=== PATIENT | male | born 1940 | race Hispanic/Latino ===

== ENCOUNTER → 2017-10-22 | Outpatient (CLI) | payer OTHER | END | disposition home or self-care (01) | LOC: SHCH 09:12 | PROVIDERS: ATTEND Internal Medicine Cardiovascular Disease | DX: I67.9 Cerebrovascular disease, unspecified (principal) | CPT/HCPCS: 93880 ==

== ENCOUNTER → 2018-05-16 | Outpatient (CLI) | payer OTHER | END | disposition home or self-care (01) | LOC: SHCH 07:54 | PROVIDERS: ATTEND Internal Medicine Cardiovascular Disease | DX: I35.8 Other nonrheumatic aortic valve disorders (principal) | CPT/HCPCS: 93306 ==

== ENCOUNTER → 2020-03-04 | Outpatient (CLI) | payer OTHER | END | disposition home or self-care (01) | LOC: SHCH 09:16 | PROVIDERS: ATTEND Internal Medicine Cardiovascular Disease | DX: I25.10 Atherosclerotic heart disease of native coronary artery without angina pectoris (principal) | CPT/HCPCS: 93880 ==

== ENCOUNTER → 2020-10-20 | Outpatient (CLI) | payer OTHER | END | disposition home or self-care (01) | LOC: SHCH 07:55 | PROVIDERS: ATTEND Internal Medicine Cardiovascular Disease | DX: I08.0 Rheumatic disorders of both mitral and aortic valves (principal); R01.1 Cardiac murmur, unspecified | CPT/HCPCS: 93306; 93356 ==

== ENCOUNTER → 2020-10-22 | Outpatient (CLI) | payer OTHER ==
[~2020-10-22] VITALS: Ht 167.6 cm; Wt 69.4 kg
[~2020-10-22] MED LIST: REGADENOSON 0.4 MG/5 ML PF SYG IVP SCH
== END | disposition home or self-care (01) ==
LOC: SHCH 08:20
PROVIDERS: ATTEND Internal Medicine Cardiovascular Disease
DX: R07.9 Chest pain, unspecified (principal)
CPT/HCPCS: 78452; 93017; 96374; A9500 ×2; J2785

== ENCOUNTER → 2021-05-27 | Outpatient (CLI) | payer OTHER | END | disposition home or self-care (01) | LOC: RAH 10:14 | PROVIDERS: ATTEND Orthopaedic Surgery | DX: M19.011 Primary osteoarthritis, right shoulder (principal); M75.121 Complete rotator cuff tear or rupture of right shoulder, not specified as traumatic | CPT/HCPCS: 73221 ==

== ENCOUNTER 2021-08-10 06:16 | Observation (INO) | payer OTHER ==
[2021-08-08 10:30] VITALS: BP 175/95
[2021-08-08 11:15] LABS: APPEARANCE,URINE Clear (CLEAR); BILIRUBIN,URINE Negative (NEGATIVE); COLOR,URINE Yellow (YELLOW); GLUCOSE, URINE (UA) Negative (NEGATIVE); KETONES,URINE Negative (NEGATIVE); LEUKOCYTE ESTERASE ,URINE Negative (NEGATIVE); NITRATE,URINE Negative (NEGATIVE); OCCULT BLOOD,URINE Negative (NEGATIVE); PROTEIN,URINE Trace mg/dL (NEGATIVE); UROBILINOGEN,URINE 0.2 mg/dL (0.2-1.0)
[2021-08-08 11:29] LABS: BACTERIA,URINE None Seen /HPF (None Seen); RBC,URINE None Seen /HPF (0-1); SQUAMOUS EPITHELIAL CELL,UR 0-2 /HPF (0-2); WBC,URINE None Seen /HPF (0-1)
[2021-08-10] VITALS (26 sets, daily range): BP systolic 104–164; BP diastolic 61–100
[~2021-08-10] VITALS: Ht 167.6 cm; Wt 65.3 kg
[~2021-08-10 06:16] MED LIST changes: +AMLO-257 PO; +ATOR20TA65 PO; +CLOP75TA14 PO; +COMB5OS OU; +HYDR12.54 PO; +LATA7.5D OP; +NETA2.5D OP; -REGADENOSON 0.4 MG/5 ML PF SYG IVP SCH; +TRAM50TA4 PO; +VALS160T29 PO
[2021-08-10] MEDS ORDERED: LACTATED RINGERS 1000ML 1,000 ML IV ONE (07:59)
[2021-08-10] MEDS: CEFAZOLIN SODIUM 1 GM VIAL IVP ONE ×2 (08:46→11:46)
[2021-08-10] MEDS ORDERED: DEXAMETHASONE SOD PHOSPHATE 10MG/ML 1ML VIAL ONE (09:43)
[2021-08-10] MEDS ORDERED: CEFAZOLIN SODIUM 1 GM VIAL ONE (10:05)
[2021-08-10] MEDS ORDERED: ROCURONIUM 10MG/1ML SYR 10 MG/ML ML ONE (10:42)
[2021-08-10] MEDS ORDERED: ONDANSETRON 4MG INJ ONE (10:42)
[2021-08-10] MEDS ORDERED: LIDOCAINE PF 100MG/5ML (2%) SYRINGE 5ML ONE (10:42)
[2021-08-10] MEDS ORDERED: MIDAZOLAM HCL 1 MG/ML 2ML VIAL ONE (10:42)
[2021-08-10] MEDS ORDERED: PROPOFOL 10 MG/ML 20ML VIAL IV ONE (10:42)
[2021-08-10] MEDS ORDERED: FENTANYL CITRATE PF 50 MCG/1 ML 2ML VIAL ONE (10:43)
[2021-08-10] MEDS ORDERED: EPHEDRINE SULFATE 50 MG/ML AMPULE ONE (11:05)
[2021-08-10] MEDS ORDERED: GLYCOPYRROLATE 1 MG/5 ML SYRINGE ONE (11:23)
[2021-08-10] MEDS ORDERED: NEOSTIGMINE 5MG/5ML SYR IV ONE (11:23)
[2021-08-10] MEDS ORDERED: LIDOCAINE HCL-MPF 1% 2ML VIAL IV PRN (14:00)
[2021-08-10] MEDS ORDERED: CALCIUM CARB 500MG PO PRN (14:00)
[2021-08-10] MEDS ORDERED: POTASSIUM CHLORIDE 10% ELIXIR 20 MEQ/15 ML UDCUP PO PRN (14:00)
[2021-08-10] MEDS: ACETAMINOPHEN 500 MG TABLET PO SCH ×2 (14:00→21:57)
[2021-08-10] MEDS ORDERED: DiphenhydrAMINE HCL 50 MG/ML VIAL IVP PRN (14:00)
[2021-08-10] MEDS ORDERED: ONDANSETRON 4MG INJ IVP PRN (14:00)
[2021-08-10] MEDS ORDERED: KETOROLAC 15MG/ML VIAL (15MG/ML) IV PRN (14:00)
[2021-08-10] MEDS: 0.9%NACL 1000ML 1,000 ML IV SCH (14:00)
[2021-08-10] MEDS ORDERED: KCL 20 MEQ ERTAB PO PRN (14:00)
[2021-08-10] MEDS ORDERED: OXYCODONE HCL 5 MG TAB PO PRN ×2 (14:00)
[2021-08-10] MEDS ORDERED: POTASSIUM CHLORIDE 20MEQ/100ML 100 ML IV PRN (14:00)
[2021-08-10] MEDS ORDERED: TRAMADOL HCL 50 MG TABLET PO PRN (14:00)
[2021-08-10] MEDS ORDERED: TEMAZEPAM 15 MG CAPSULE PO PRN (14:00)
[2021-08-10] MEDS ORDERED: FE FUMARATE/FA/MV, MIN COMB#15 1 TAB PO PRN (14:00)
[2021-08-10] MEDS: CEFAZOLIN SODIUM 1 GM VIAL IVP SCH (18:24)
[2021-08-10] MEDS: NETARSUDIL MESYLATE OP SCH (21:00)
[2021-08-10] MEDS: LATANOPROST 2.5 ML DROPS OP SCH (21:49)
[2021-08-10] MEDS: TIMOLOL MALEATE 0.5% 5 ML BOTTLE OU SCH (21:49)
[2021-08-10] MEDS: BRIMONIDINE TARTRATE 0.2% 5 ML BOTTLE OU SCH (21:49)
[2021-08-10] MEDS: ATORVASTATIN 20 MG TABLET PO SCH (21:50)
[2021-08-10] MEDS: CELECOXIB 200 MG CAP PO SCH (21:50)
[2021-08-10] MEDS: FAMOTIDINE 20MG TAB PO SCH (21:50)
[2021-08-10] MEDS: ASPIRIN 81 MG EC TAB PO SCH (21:50)
[2021-08-10] MEDS: LOSARTAN 100 MG TABLET PO SCH (21:50)
[2021-08-11 00:08] VITALS: BP 111/82
[2021-08-11] MEDS: CEFAZOLIN SODIUM 1 GM VIAL IVP SCH (03:12)
[2021-08-11 04:08] VITALS: BP 114/79
[2021-08-11 04:43] LABS: HEMATOCRIT 32.2 % (42-54); MEAN CORPUSCULAR HEMOGLOBIN 30.5 pg (27.0-33.0); MEAN CORPUSCULAR HGB CONC 33.2 g/dL (32.0-36.0); MEAN CORPUSCULAR VOLUME 91.7 fL (79-99); RED BLOOD CELL COUNT(AUTO) 3.51 MIL/uL (4.50-6.20); RED CELL DISTRIBUTION WIDTH 13.9 % (11.0-15.5); WHITE BLOOD COUNT (AUTO) 9.8 K/uL (4.8-10.8)
[2021-08-11 04:56] LABS: CREATININE 1.1 mg/dL (0.5-1.5); POTASSIUM 4.4 mmol/L (3.5-5.1)
[2021-08-11] MEDS: ACETAMINOPHEN 500 MG TABLET PO SCH ×3 (05:57→22:58)
[2021-08-11 07:30] VITALS: BP 120/77
[2021-08-11] MEDS ORDERED: CLOPIDOGREL 75MG TAB PO SCH (09:00)
[2021-08-11] MEDS: LOSARTAN 100 MG TABLET PO SCH ×2 (09:00→20:50)
[2021-08-11] MEDS: BRIMONIDINE TARTRATE 0.2% 5 ML BOTTLE OU SCH (09:00)
[2021-08-11] MEDS: AMLODIPINE 5 MG TAB PO SCH (09:00)
[2021-08-11] MEDS: HYDROCHLOROTHIAZIDE 25 MG TABLET PO SCH (09:00)
[2021-08-11] MEDS: TIMOLOL MALEATE 0.5% 5 ML BOTTLE OU SCH (09:00)
[2021-08-11] MEDS: FAMOTIDINE 20MG TAB PO SCH ×2 (09:02→20:17)
[2021-08-11] MEDS: CELECOXIB 200 MG CAP PO SCH ×2 (09:02→20:17)
[2021-08-11] MEDS: ASPIRIN 81 MG EC TAB PO SCH ×2 (09:02→20:17)
[2021-08-11] MEDS: POLYETHYLENE GLYCOL 3350 17 GM POWD.PACK PO SCH (09:05)
[2021-08-11] MEDS ORDERED: CYCL30DR OP (09:17)
[2021-08-11] MEDS: 0.9%NACL 1000ML 1,000 ML IV SCH ×2 (10:00)
[2021-08-11 11:00] VITALS: BP 121/67
[2021-08-11 16:00] VITALS: BP 117/73
[2021-08-11 20:04] VITALS: BP 139/83
[2021-08-11] MEDS: ATORVASTATIN 20 MG TABLET PO SCH (20:17)
[2021-08-11] MEDS: LATANOPROST 2.5 ML DROPS OP SCH (20:51)
[2021-08-11] MEDS: NETARSUDIL MESYLATE OP SCH (21:00)
[2021-08-12 00:08] VITALS: BP 114/72
[2021-08-12 04:08] VITALS: BP 122/75
[2021-08-12] MEDS: ACETAMINOPHEN 500 MG TABLET PO SCH ×2 (05:54→16:23)
[2021-08-12 08:02] VITALS: BP 132/68
[2021-08-12] MEDS: HYDROCHLOROTHIAZIDE 25 MG TABLET PO SCH (09:29)
[2021-08-12] MEDS: AMLODIPINE 5 MG TAB PO SCH (09:29)
[2021-08-12] MEDS: ASPIRIN 81 MG EC TAB PO SCH (09:29)
[2021-08-12] MEDS: LOSARTAN 100 MG TABLET PO SCH (09:29)
[2021-08-12] MEDS: POLYETHYLENE GLYCOL 3350 17 GM POWD.PACK PO SCH (09:29)
[2021-08-12] MEDS: FAMOTIDINE 20MG TAB PO SCH (09:29)
[2021-08-12] MEDS: CELECOXIB 200 MG CAP PO SCH (09:29)
[2021-08-12 10:33] VITALS: BP 139/84
[2021-08-12] MEDS ORDERED: HYDR-4060 PO (11:20)
[2021-08-12] MEDS ORDERED: AEC81 PO (11:20)
[2021-08-12 16:11] VITALS: BP 136/86
[2021-08-13] MEDS ORDERED: BISACODYL 10 MG SUPP.RECT RC PRN (14:00)
== END 2021-08-12 17:45 ==
LOC: DAH 06:16 → DAHIP 06:17 → 4AH 15:22
PROVIDERS: ADMIT Orthopaedic Surgery; ATTEND Orthopaedic Surgery
DX: M75.101 Unspecified rotator cuff tear or rupture of right shoulder, not specified as traumatic (principal); Z20.822 Contact with and (suspected) exposure to COVID-19; D62 Acute posthemorrhagic anemia; E78.5 Hyperlipidemia, unspecified; I10 Essential (primary) hypertension; Z96.611 Presence of right artificial shoulder joint; Z79.899 Other long term (current) drug therapy; Z86.73 Personal history of transient ischemic attack (TIA), and cerebral infarction without residual deficits
CPT/HCPCS: 23474; 36415; 73030; 80048; 81001; 85027; 87088; 87635; 87641; 96374; 96376; 97039 ×5; 97161; 97530 ×3; A4213; A4215; A4221; A4222; A4223; A4510; A4565; A4649 ×5; A4663; A4930; A5120; A6206; C1713; C1776; C9803; G0378 ×51; J0690 ×4; J1100; J2001; J2250; J2405; J2704; J2710; J3010; J3490 ×2; J7030; J7120 ×2; 64415; 76942

== ENCOUNTER → 2024-08-23 | Outpatient (CLI) | payer OTHER ==
[~2024-08-23] MED LIST changes: +AEC81 PO; -CLOP75TA14 PO; -COMB5OS OU; +CYCL30DR OP; +HYDR-4060 PO
--- NOTE | 2024-08-27 07:24 | HMCSR ---
APPROVED REPORT EXAM: Two-dimensional and M-mode echocardiogram with Doppler and color Doppler. INDICATION ICD: R01.1 Cardiac murmur, unspecified 2D Dimensions RVDd3.7 cmLVEF(%)47.3 (>50%)LVED Vol(simp.)65.6 mL IVSd1.2 (0.7-1.1cm)FS(%)24 %LVES Vol(simp.)27.1 mL LVDd4.5 (3.8-5.6cm)LA (2D)3.9 (1.6-4.0cm)LVEF(%, simp.)59 % PWd1.1 (0.7-1.1cm)Ao Root(2D)3.0 (2.0-3.7cm)LA ESV INDEX (4CH)23.00 mL/m2 IVSs1.1 cmLVOT diam2.0 (1.8-2.4cm)LA ESV INDEX (2CH)24.20 mL/m2 LVDs3.4 (2.5-4.0cm)LA ESV INDEX (BP)24.80 mL/m2 PWs1.4 cm M-Mode Dimensions EPSS0.7 cm LA (MM)3.8 (1.6-4.0cm) Ao Root(MM)3.3 (2.0-3.7cm) Aortic Valve AoV VTI0.5 mAo Mean GR13.0 mmHgLVOT VTI0.25 m YUDELKA (VMAX)1.6 cm2AVA (VTI) 1.6 cm2 Mitral Valve MV E Vmax57.7 cm/sDECEL Teuw927 ms MV A Vmax99.9 cm/sP 1/2 T85 ms E/A ratio0.6MVA (PHT)2.6 cm2 MR Max PG100 mmHg TDI E/E' Rqjntt01.8E/E' Lateral7.6 Medial E' Peak V4.90 cm/sLateral E' Peak V7.60 cm/s Pulmonary Valve PV Vmax1.4 m/s PV Peak GR7.4 mmHg Tricuspid Valve TR Vmax2.3 m/sRAP (EST) 15 hsKuSMZB33.3 mmHg TR Peak GR21.3 mmHg Left Ventricle Left ventricular cavity size is normal. Mild concentric left ventricular hypertrophy. LVEF is 55%. No left ventricle thrombus noted on this study. Stage I diastolic dysfunction. Right Ventricle The right ventricle is normal size. The right ventricular systolic function is normal. Atria The left atrium size is normal. The right atrium is moderately dilated. Aortic Valve Aortic valve is trileaflet, mildly sclerotic and opens well. No aortic regurgitation is present. Ther e is no aortic valvular stenosis. Mitral Valve Posterior mitral valve annular calcification noted. There is trace of mitral valve regurgitation note d. There is no mitral valve stenosis. Tricuspid Valve The tricuspid valve is normal in structure and function. There is trace of tricuspid valve regurgitat ion noted. Pulmonic Valve Pulmonic valve is not well visualized. There is no pulmonic valvular regurgitation. Great Vessels The aortic root is normal in size. IVC is dilated and collapses <50% with inspiration. Pericardium No pericardial effusion. Other Information Quality : Adequate Conclusion Left ventricular cavity size is normal. Mild concentric left ventricular hypertrophy. LVEF is 55%. Stage I diastolic dysfunction. The right ventricle is normal size. The left atrium size is normal. The right atrium is moderately dilated. Aortic valve is trileaflet, mildly sclerotic and opens well. No aortic regurgitation is present. Posterior mitral valve annular calcification noted. There is trace of mitral valve regurgitation noted. There is no mitral valve stenosis. There is trace of tricuspid valve regurgitation noted. There is no pulmonic valvular regurgitation. The aortic root is normal in size. IVC is dilated and collapses <50% with inspiration. No pericardial effusion.
== END | disposition home or self-care (01) ==
LOC: SHCH 08:15
PROVIDERS: ATTEND Internal Medicine Cardiovascular Disease
DX: I08.0 Rheumatic disorders of both mitral and aortic valves (principal); R01.1 Cardiac murmur, unspecified
CPT/HCPCS: 93306

== ENCOUNTER → 2024-09-18 | Outpatient (CLI) | payer OTHER ==
--- NOTE | 2024-09-19 08:21 | HMCSR ---
APPROVED REPORT Laterality: Bilateral Indications Other symptoms and signs involving the circ and resp Doppler Spectral Velocity Analysis PSV / EDVPSV / EDV ECA (R) 91 / cm/sECA (L) 86 / cm/s dICA (R) 70 / 26 cm/sdICA (L) 70 / 25 cm/s Willem (R) 59 / 20 cm/smICA (L) 52 / 21 cm/s pICA (R) 57 / 12 cm/spICA (L) 51 / 12 cm/s dCCA (R) 72 / 15 cm/sdCCA (L) 65 / 12 cm/s mCCA (R) 118 / 23 cm/smCCA (L) 68 / 13 cm/s pCCA (R) 149 / 20 cm/spCCA (L) 82 / 17 cm/s Vert (R) 44 / cm/sVert (L) 41 / cm/s Subl. (R) 148 / cm/sSubl. (L) 99 / cm/s ICA/CCA 0.47ICA/CCA 0.85 Technologist Impression Minimal plaque noted in the bilateral carotids. Bilateral ICA'S appear patent without hemodynamic significance. Bilateral vertebral arteries appear antegrade. Conclusion Minimal plaque noted in the bilateral carotids, without hemodynamic significance. Bilateral vertebral arteries appear antegrade. Conclusion Minimal plaque noted in the bilateral carotids, without hemodynamic significance. Bilateral vertebral arteries appear antegrade.
== END | disposition home or self-care (01) ==
LOC: SHCH 10:02
PROVIDERS: ATTEND Internal Medicine Cardiovascular Disease
DX: R09.89 Other specified symptoms and signs involving the circulatory and respiratory systems (principal)
CPT/HCPCS: 93880